=== PATIENT | female | born 1975 | race Hispanic/Latino ===

== ENCOUNTER 2016-09-12 19:15 | Emergency (ER) | payer MEDICAID ==
[2016-09-12 20:00] VITALS: BP 107/63; PULSE 72; RESP 20; TEMP 98.2; O2SAT 99
[2016-09-13] MEDS ORDERED: Piperacillin/Tazobact 3.375 gm 100 ML IVPB ONE (00:33)
== END 2016-09-12 19:57 | disposition left against medical advice (07) ==
LOC: C.ER 19:15
DX: Z02.89 Encounter for other administrative examinations (principal); H57.9 Unspecified disorder of eye and adnexa

== ENCOUNTER 2016-09-12 21:45 | Emergency (ER) | payer MEDICAID ==
[2016-09-12 22:04] VITALS: O2SAT 100
[2016-09-12] MEDS ORDERED: Piperacill/Tazo 3.375gm in Dex 3.375 GM/50 ML BAG IVPB STA (23:14)
[2016-09-12] MEDS ORDERED: Vancomycin 1 gm/NS 200 ml 1 GM/200 ML BAG IVPB STA (23:14)
--- NOTE | 2016-09-13 | C.PDOC ---
History Of Present Illness 40 y/o female presents to ED with complaint of left sided facial redness, swelling, and pain for 4-5 days. Patient states symptoms have been progressively worsening. She notes she was prescribed antibiotics at [facility] [place] 2 days ago, but did not fill the prescription. Notes tetanus vaccination is up to date. Otherwise, denies fever, chills, visual changes, lightheadedness, dizziness, or other associated symptoms. Time Seen by Provider: 09/12/16 23:09 Chief Complaint (Nursing): Eye Problem History Per: Patient History/Exam Limitations: no limitations Onset/Duration Of Symptoms: Days Current Symptoms Are (Timing): Worse Injury To Eye?: No Quality: "Pain" Associated Symptoms: Pain, Swelling. denies: Decreased Vision Recent travel outside of the [place]: No Past Medical History Reviewed: Historical Data, Nursing Documentation, Vital Signs Vital Signs: Last Vital Signs Temp 98.2 F 09/13/16 00:00 Pulse 76 09/13/16 00:00 Resp 18 09/13/16 02:00 BP 104/66 09/13/16 00:00 Pulse Ox 100 09/13/16 01:13 - Medical History PMH: Anxiety, Asthma, Back Problems, Seizures Family History: States: Unknown Family Hx - Social History Hx Tobacco Use: Yes Hx Alcohol Use: No Hx Substance Use: No (clean since 02/21) - Immunization History Hx Tetanus Toxoid Vaccination: Yes Review Of Systems Except As Marked, All Systems Reviewed And Found Negative. Constitutional: Negative for: Fever, Chills ENT: Positive for: Other (left sided facial pain, redness, swelling). Negative for: Throat Pain Respiratory: Negative for: Cough, Shortness of Breath, Wheezing Gastrointestinal: Negative for: Nausea, Vomiting Skin: Negative for: Rash Neurological: Negative for: Weakness, Numbness, Headache, Dizziness Physical Exam - Physical Exam Appears: Non-toxic, No Acute Distress Skin: Warm, Dry Head: Atraumatic, Normacephalic, Swelling (left orbit), Other (anterior to left tragus: area of superficial ulceration with diffuse redness, swelling, and induration surrounding ) Eye(s): bilateral: PERRL, EOMI Ear(s): Left: Other (see head exam), Right: Normal Nose: Normal Oral Mucosa: Moist Throat: Normal Neck: Supple Chest: Symmetrical Cardiovascular: Rhythm Regular Respiratory: Normal Breath Sounds, No Rales, No Rhonchi, No Wheezing Gastrointestinal/Abdominal: Soft, No Tenderness Back: Normal Inspection Extremity: Normal ROM, Capillary Refill (< 2 sec. ) Neurological/Psych: Oriented x3, Normal Speech, Normal Cognition ED Course And Treatment - Laboratory Results Result Diagrams: 09/13/16 00:24 09/13/16 00:24 O2 Sat by Pulse Oximetry: 100 (RA) Pulse Ox Interpretation: Normal Progress Note: IV abx given. Labs, CT orbits ordered and reviewed. Medical Decision Making Medical Decision Making: In view of the hx as well as location pt will need admission for abx tx discussed with dr Kurtz who agrees with plan Disposition - Disposition Disposition: AGAINST MEDICAL ADVICE Disposition Time: 01:13 Condition: FAIR - Clinical Impression Clinical Impression: Facial cellulitis - Scribe Statement The provider has reviewed the documentation as recorded by the Scribe Oziel Rosario Provider Scribe Attestation: All medical record entries made by the Scribe were at my direction and personally dictated by me. I have reviewed the chart and agree that the record accurately reflects my personal performance of the history, physical exam, medical decision making, and the department course for this patient. I have also personally directed, reviewed, and agree with the discharge instructions and disposition.
[2016-09-13 00:35] LABS: BASO % 0.2 % (0.0-2.0); EOS # 0.3 K/uL (0.0-0.7); EOS % 2.6 % (0.0-4.0); HEMATOCRIT 40.7 % (34.0-47.0); LYMPH # 2.9 K/uL (1.0-4.3); LYMPH % 29.9 % (20.0-40.0); MEAN CELL VOLUME 87.5 fL (81.0-99.0); MEAN CORPUSCULAR HEMOGLOBIN 28.8 pg (27.0-31.0); MEAN CORPUSCULAR HGB CONC 32.9 g/dL (33.0-37.0); MEAN PLATELET VOLUME 8.2 fL (7.2-11.7); MONO # 0.8 K/uL (0.0-0.8); MONO % 8.5 % (0.0-10.0); RED CELL DISTRIBUTION WIDTH 15.3 % (11.5-14.5); WHITE BLOOD COUNT 9.8 K/uL (4.8-10.8)
[2016-09-13 00:47] LABS: CHLORIDE 96 mmol/L (98-107); POTASSIUM 3.4 mmol/L (3.6-5.2); SODIUM 131 mmol/L (132-148)
[2016-09-13 00:49] LABS: ALB/GLOB RATIO 1.1 (1.0-2.1); ALKALINE PHOSPHATASE 115 U/L (38-126); AST/SGOT 72 U/L (14-36); BILIRUBIN,TOTAL 0.3 mg/dL (0.2-1.3); CARBON DIOXIDE 27 mmol/L (22-30); GFR AFRICAN-AMERICAN > 60
[2016-09-13 00:50] LABS: ALT/SGPT 144 U/L (9-52); BLOOD UREA NITROGEN 8 mg/dL (7-17); CALCIUM 8.5 mg/dl (8.6-10.4); GLUCOSE,RANDOM 97 mg/dL (65-105)
--- NOTE | 2016-09-13 01:40 | CP.PCM.HP ---
<Yomi Crowley - Last Filed: 09/13/16 02:09> History of Present Illness - History of Present Illness History of Present Illness: CC: "Infection of skin on face" 40 F with no significant PMH presents to [facility] ED with complaint of facial redness, swelling, and pain for 4-5 days. Patient states symptoms began suddenly and have been progressively worsening. She states that she never had these symptoms before. Patient reported that she went to [facility] [place] 2 days peterson where she was prescribed 3 antibiotics, but did not fill the prescriptions. She rated the pain 10/10 in severity. She describes the pain as constant and throbbing mainly located on left side of face. Talking and chewing make pain worse while nothing makes it better. She reports her tetanus vaccination status is up to date. Admits to difficulty seeing out of Left eye due to swelling. Otherwise, denies fever/chills, lightheadedness, dizziness, cp, sob, abd pain, n /v/d or other associated symptoms. PMD: denies PMH: denies Meds: denies Allergy: NKDA PSH: denies Hosp: denies FH: denies Social: smoker, denies ETOH, illicit drugs use Present on Admission - Present on Admission Any Indicators Present on Admission: No History of DVT/PE: No History of Uncontrolled Diabetes: No Urinary Catheter: No Decubitus Ulcer Present: No Review of Systems - Review of Systems All systems: reviewed and no additional remarkable complaints except (as per HPI ) Past Patient History - Infectious Disease Hx of Infectious Diseases: None - Past Social History Smoking Status: Heavy Smoker > 10 Cigarettes Daily - PULMONARY Hx Asthma: Yes - NEUROLOGICAL Hx Seizures: Yes - MUSCULOSKELETAL/RHEUMATOLOGICAL Hx Back Pain: Yes - PSYCHIATRIC Hx Anxiety: Yes Hx Substance Use: No (clean since 02/21) - SURGICAL HISTORY Hx Surgeries: Yes Other/Comment: ovarian cyst removal 2004 - ANESTHESIA Hx Anesthesia: Yes Hx Anesthesia Reactions: No Meds Allergies/Adverse Reactions: Allergies Allergy/AdvReac Type Severity Reaction Status Date / Time No Known Allergies Allergy Verified 09/12/16 20:01 Physical Exam - Constitutional Appears: No Acute Distress - Head Exam Head Exam: NORMOCEPHALIC Additional comments: left side of face has large scab redness over left orbit, left cheek, and right cheek beneath the eye patient left eye swollen shut - Eye Exam Eye Exam: EOMI Pupil Exam: PERRL - ENT Exam ENT Exam: Mucous Membranes Moist - Neck Exam Neck exam: Positive for: Normal Inspection - Respiratory Exam Respiratory Exam: Clear to Auscultation Bilateral, NORMAL BREATHING PATTERN - Cardiovascular Exam Cardiovascular Exam: REGULAR RHYTHM, +S1, +S2 - GI/Abdominal Exam GI & Abdominal Exam: Normal Bowel Sounds, Soft. absent: Tenderness - Extremities Exam Extremities exam: Positive for: normal capillary refill, pedal pulses present. Negative for: calf tenderness - Back Exam Back exam: absent: CVA tenderness (L), CVA tenderness (R) - Neurological Exam Neurological exam: Alert, CN II-XII Intact, Oriented x3 - Psychiatric Exam Psychiatric exam: Agitated - Skin Skin Exam: Dry, Intact, Warm Results - Vital Signs Recent Vital Signs: Last Vital Signs Temp 98.1 F 09/12/16 22:00 Pulse 67 09/12/16 22:00 Resp 20 09/12/16 22:00 BP 109/66 09/12/16 22:00 Pulse Ox 100 09/13/16 01:13 - Labs Result Diagrams: 09/13/16 00:24 09/13/16 00:24 Labs: Laboratory Results - last 24 hr 09/13/16 09/13/16 09/13/16 00:24 00:24 00:39 WBC 9.8 RBC 4.65 Hgb 13.4 Hct 40.7 MCV 87.5 MCH 28.8 MCHC 32.9 L RDW 15.3 H Plt Count 249 MPV 8.2 Neut % (Auto) 58.8 Lymph % (Auto) 29.9 [place] % (Auto) 8.5 Eos % (Auto) 2.6 Baso % (Auto) 0.2 Neut # 5.8 Lymph # 2.9 [place] # 0.8 Eos # 0.3 Baso # 0.0 Sodium 131 L Potassium 3.4 L Chloride 96 L Carbon Dioxide 27 Anion Gap 12 BUN 8 Creatinine 0.4 L Est GFR ( Amer) > 60 Est GFR (Non-Af Amer) > 60 Random Glucose 97 Calcium 8.5 L Total Bilirubin 0.3 AST 72 H D ALT 144 H D Alkaline Phosphatase 115 Total Protein 7.0 Albumin 3.6 Globulin 3.4 Albumin/Globulin Ratio 1.1 Beta HCG, Quant < 2.39 Assessment & Plan - Assessment and Plan (Free Text) Plan: 1. Facial cellulitis Zosyn and vanco given in ED Orbits CT Patient decided to SIGN OUT AMA <Celestino Gracia P - Last Filed: 09/14/16 05:53> Results - Vital Signs Recent Vital Signs: Last Vital Signs Temp 98.2 F 09/13/16 00:00 Pulse 76 09/13/16 00:00 Resp 18 09/13/16 02:00 BP 104/66 09/13/16 00:00 Pulse Ox 100 09/13/16 01:13 - Labs Result Diagrams: 09/13/16 00:24 09/13/16 00:24
[2016-09-13 02:48] VITALS: BP 104/66; PULSE 76; TEMP 98.2
[2016-09-13 02:59] VITALS: RESP 18
--- NOTE | 2016-09-13 08:10 | RAD ---
HISTORY: facial cellulitis COMPARISON: No prior. TECHNIQUE: Chest PA and lateral FINDINGS: LUNGS: No active pulmonary disease. PLEURA: No significant pleural effusion identified. No pneumothorax apparent. CARDIOVASCULAR: Normal. OSSEOUS STRUCTURES: No significant abnormalities. VISUALIZED UPPER ABDOMEN: Normal. OTHER FINDINGS: None. IMPRESSION: No active disease.
== END 2016-09-13 02:00 | disposition left against medical advice (07) ==
LOC: C.ER 21:45 → UNDOADMIN 09-13 00:59 → C.9E 09-13 00:59 → UNDODISIN 09-13 02:00 → C.ER 09-13 02:00
DX: L03.211 Cellulitis of face (principal); F41.9 Anxiety disorder, unspecified; J45.909 Unspecified asthma, uncomplicated; F17.210 Nicotine dependence, cigarettes, uncomplicated; R45.1 Restlessness and agitation
CPT/HCPCS: 71020; 80053; 84702; 85025; 87040; 96365; 96367; 99285; J2543; J3370

== ENCOUNTER 2017-01-06 23:56 | Inpatient (IN) | payer MEDICAID, OTHER ==
--- NOTE | 2017-01-07 00:06 | C.PDOC ---
History Of Present Illness 41 y/o female presents to the ED for narcotic detox. Prior to arrival the patient used Xanax and last drink was 2 days ago. Denies physical complaints at this time. PRESCREEN FOR NARCOTIC DETOX. LAST USE SPANISH SPEAKING NANNY. +XANAX ABUSE. LAST DRINK2 DAYS AGO. CURRENTLY ASYMPT EXAM NEG Time Seen by Provider: 01/07/17 00:05 Chief Complaint (Nursing): Substance Abuse History Per: Patient History/Exam Limitations: no limitations Onset/Duration Of Symptoms: Days Current Symptoms Are (Timing): Still Present Additional History Per: Patient Past Medical History Reviewed: Historical Data, Nursing Documentation, Vital Signs Vital Signs: Last Vital Signs Temp 98 F 01/07/17 01:24 Pulse 79 01/07/17 01:24 Resp 18 01/07/17 01:24 BP 122/59 L 01/07/17 01:24 Pulse Ox 97 01/07/17 01:43 - Medical History PMH: Anxiety, Asthma, Back Problems, Seizures Surgical History: No Surg Hx Family History: States: Unknown Family Hx - Social History Hx Tobacco Use: Yes Hx Alcohol Use: No Hx Substance Use: No (clean since 02/21) - Immunization History Hx Tetanus Toxoid Vaccination: Yes Hx Influenza Vaccination: No Hx Pneumococcal Vaccination: No Review Of Systems Except As Marked, All Systems Reviewed And Found Negative. Constitutional: Negative for: Fever, Chills Gastrointestinal: Negative for: Nausea, Vomiting Physical Exam - Physical Exam Appears: Non-toxic, No Acute Distress Skin: Normal Color, Warm, Dry Head: Atraumatic, Normacephalic Oral Mucosa: Moist Neck: Supple Chest: Symmetrical Cardiovascular: Rhythm Regular Respiratory: Normal Breath Sounds Gastrointestinal/Abdominal: Normal Exam, No Tenderness, No Guarding, No Rebound Extremity: Normal ROM, Capillary Refill (<2sec.) Neurological/Psych: Oriented x3, Normal Speech, Normal Cognition Gait: Steady ED Course And Treatment - Laboratory Results Result Diagrams: 01/07/17 00:18 01/07/17 00:18 O2 Sat by Pulse Oximetry: 97 (RA) Pulse Ox Interpretation: Normal Reevaluation Time: 00:55 Reassessment Condition: Unchanged (RECOMMEND MEDICINE CONSULT NEEDED FOR FUTHER MGMT OF ABN UA. MED CLEAR FOR DETOX. CRISIS NOTIFIED) Medical Decision Making Medical Decision Making: Plan: * Macrobid * Blood work * Urinalysis * Crisis Crisis notified. Disposition Counseled Patient/Family Regarding: Studies Performed, Diagnosis - Disposition Disposition: HOSPITALIZED Disposition Time: 01:21 Condition: STABLE - POA Present On Arrival: None - Clinical Impression Clinical Impression: Polysubstance abuse - Scribe Statement The provider has reviewed the documentation as recorded by the Scribe Claudio Davis All medical record entries made by the Scribe were at my direction and personally dictated by me. I have reviewed the chart and agree that the record accurately reflects my personal performance of the history, physical exam, medical decision making, and the department course for this patient. I have also personally directed, reviewed, and agree with the discharge instructions and disposition. Decision To Admit - Pt Status Changed To: Hospital Disposition Of: Inpatient - Admit Certification Admit to Inpatient:: After my assessment, the patient will require hospitalization for at least two midnights. This is because of the severity of symptoms shown, intensity of services needed, and/or the medical risk in this patient being treated as an outpatient. - InPatient: Physician Admission Certification: I certify that this patient requires 2 or more midnights of care for the following reason:: SEE NOTE - . Bed Request Type: Detox Admitting Physician: Manjula Lobo Patient Diagnosis: Polysubstance abuse
[2017-01-07 00:21] LABS: BASO % 0.5 % (0.0-2.0); EOS # 0.2 K/uL (0.0-0.7); EOS % 2.3 % (0.0-4.0); HEMATOCRIT 39.1 % (34.0-47.0); LYMPH # 4.2 K/uL (1.0-4.3); LYMPH % 41.8 % (20.0-40.0); MEAN CELL VOLUME 88.7 fL (81.0-99.0); MEAN CORPUSCULAR HEMOGLOBIN 29.3 pg (27.0-31.0); MEAN PLATELET VOLUME 7.6 fL (7.2-11.7); MONO % 9.7 % (0.0-10.0); RED CELL DISTRIBUTION WIDTH 14.7 % (11.5-14.5); WHITE BLOOD COUNT 10.2 K/uL (4.8-10.8)
[2017-01-07 00:27] LABS: RBC URINE 3 /hpf (0-3); URINE BACTERIA RARE (<OCC); URINE BILIRUBIN NEGATIVE (NEGATIVE); URINE BLOOD 1+ (NEGATIVE); URINE COLOR Yellow (YELLOW); URINE GLUCOSE (UA) NORMAL (Normal); URINE KETONE TRACE mg/dL (NEGATIVE); URINE LEUKOCYTE ESTERASE 2+ Leu/uL (Negative); URINE PROTEIN NEGATIVE (NEGATIVE); URINE UROBILINOGEN NORMAL mg/dL (0.2-1.0); WBC URINE 21 /hpf (0-5)
[2017-01-07 00:31] LABS: CHLORIDE 104 mmol/L (98-107)
[2017-01-07 00:32] LABS: POTASSIUM 3.8 mmol/L (3.6-5.2); SODIUM 139 mmol/L (132-148)
[2017-01-07 00:34] LABS: ALB/GLOB RATIO 1.2 (1.0-2.1); ALKALINE PHOSPHATASE 118 U/L (38-126); AST/SGOT 59 U/L (14-36); BILIRUBIN,TOTAL 0.4 mg/dL (0.2-1.3); BLOOD UREA NITROGEN 11 mg/dL (7-17); CARBON DIOXIDE 29 mmol/L (22-30); GFR AFRICAN-AMERICAN > 60
[2017-01-07 00:35] LABS: ALCOHOL SERUM < 10 mg/dl (0-10); ALT/SGPT 68 U/L (9-52); CALCIUM 8.7 mg/dl (8.6-10.4); GLUCOSE,RANDOM 93 mg/dL (65-105)
--- NOTE | 2017-01-07 05:49 | PCM.BM ---
<NonaRosemary Teofilo - Last Filed: 01/07/17 05:44> Treatment Plan Problems - Problems identified on initial assessmt Opiate dependence Date Initiated: 01/07/17 Time Initiated: 05:50 Assessment reference: NA Status: Active Polysubstance Date Initiated: 01/07/17 Time Initiated: 05:51 Assessment reference: NA Status: Active Treatment assets and liabiliti Patient Assests: cooperative, ADL independent, negotiates basic needs, good interpersonal skills Patient Liabilities: financial problems, poor support system, substance abuse - Milieu Protocol Maintain good personal hygiene: daily Encourage regular showers, daily Remind patient to perform daily oral care, daily Assist patient to perform ADL's Conduct patient checks and document Observation sheet: Q15 minutes Maintain personal safety: every shift Educate patient to report safety concerns to staff, every shift Monitor environment for contraband/sharps Medication safety: Monitor for expected outcome, potential side effects: every shift, Assess barriers to learning: every shift, Assess readiness for medication education: every shift <Lisette Edmonds - Last Filed: 01/07/17 11:42> Family Contact Family involvement: Famliy/SO not involved Family contact: Patient agrees to contact - Goals for Treatment Patient goals for treatment: Complete detox and discuss options for treatment at location where patient is moving. Discharge/Continuing Care - Education Needs Education Needs: Patient Medication, Patient Diagnosis/Disease Process, Patient Coping Skills, Patient Anger Management skills, Patient Placement options, Patient Community resources - Discharge Discharge Criteria: Free of agitation, No longer exhibiting s/s of withdrawal, Reduction of target symptoms Discharge to:: Home - Treatment Team Participation Patient/Family/SO Statement: 01/07/17 11:43 "I don't want inpatient treatment hor[place] me and my are gonna move as soon as I get out". Discussed with Family/SO: No Was Patient/Family/SO present at Treatment Team Meeting: Yes <Manjula Lobo - Last Filed: 01/08/17 10:21> - Diagnosis (1) Opioid use disorder, severe, dependence Status: Acute Interventions: 01/08/17 10:09 * Assess 7x/week regarding severity of withdrawal * Educate regarding risks, benefits, side effects and alternatives of medications * Use Motivational Interviewing for abstinence * Use CBT for relapse prevention * Medication management for withdrawal symptoms * Encourage medication assisted treatment * (2) Alcohol use disorder, severe, dependence Status: Acute Interventions: 01/08/17 10:20 * Assess 7x/week regarding severity of withdrawal * Educate regarding risks, benefits, side effects and alternatives of medications * Use Motivational Interviewing for abstinence * Use CBT for relapse prevention * Medication management for withdrawal symptoms * Encourage medication assisted treatment *
[2017-01-07] MEDS ORDERED: Buprenorphine Hydrochloride 2 mg SL ONE ×3 (10:27→22:40)
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
[2017-01-08] MEDS: Buprenorphine Hydrochloride 2 mg SL SCH (10:36)
[2017-01-09] MEDS: Buprenorphine Hydrochloride 2 mg SL SCH (09:19)
[2017-01-09 09:34] VITALS: RESP 18
[2017-01-09 13:09] VITALS: O2SAT 99
[2017-01-10] MEDS: Buprenorphine Hydrochloride 2 mg SL SCH (09:13)
[2017-01-10] MEDS ORDERED: Pneumococcal 23-Valent Vaccine IM ONE (10:00)
[2017-01-10 10:10] VITALS: BP 114/77; PULSE 68; TEMP 97.7
--- NOTE | 2017-01-10 18:31 | PCM.PYCHPN ---
Psychiatric Progress Note - Psychiatric Progress Note Patient seen today, length of contact: 15 Patient Chief Complaint: i want to stay and get clean. my is already clean because she is in [facility] Problems Identified/Issues Discussed: QUYNH relapse prevention Medical Problems: nothing acute Diagnostic Results: reviewed DSM 5 Symptoms Update: sleeping better Medication Change: Yes (subutex taper) Medical Record Reviewed: Yes Mental Status Examination - Cognitive Function Orientation: Person, Place, Situation, Time Memory: Intact Attention: WNL Concentration: WNL Association: WNL Fund of Knowledge: WNL - Mood Mood: Depressed, Anxious - Affect Affect: Constricted - Speech Speech: Appropriate - Formal Thought Process Formal Thought Process: No Impairment - Suicidal Ideation Suicidal Ideation: No - Homicidal Ideation Homicidal Ideation: No Goal/Treatment Plan - Goal/Treatment Plan Progress Toward Problem(s) and Goals/Treatment Plan: opiate withdrawal-less restless legs opiate use [place] CBT supportive psychotherapy Estimated Date of D/C: 01/11/17 - Smoking Cessation Smoking Cessation Initiated: Yes
--- NOTE | 2017-01-10 18:37 | PCM.PYCHPN ---
Psychiatric Progress Note - Psychiatric Progress Note Patient seen today, length of contact: 15 Patient Chief Complaint: i i jave an appointment i cannot miss on tuesday Problems Identified/Issues Discussed: relationshiops with people who still use Medical Problems: nothing acute Diagnostic Results: reviewed DSM 5 Symptoms Update: sleeping better minimum withdrawal symptoms Medication Change: Yes (subutex taper) Medical Record Reviewed: Yes Mental Status Examination - Cognitive Function Orientation: Person, Place, Situation, Time Memory: Intact Attention: WNL Concentration: WNL Association: WNL Fund of Knowledge: WNL - Mood Mood: Depressed, Anxious - Affect Affect: Constricted - Speech Speech: Appropriate - Formal Thought Process Formal Thought Process: No Impairment - Suicidal Ideation Suicidal Ideation: No - Homicidal Ideation Homicidal Ideation: No Goal/Treatment Plan - Goal/Treatment Plan Need for Continued Stay: Discharge may exacerbated symptoms Progress Toward Problem(s) and Goals/Treatment Plan: opiate withdrawal subutex taper opiate use disorder IN CBT groups use Estimated Date of D/C: 01/11/17 - Smoking Cessation Smoking Cessation Initiated: Yes
== END 2017-01-10 11:45 | disposition home or self-care (01) | DRG 744 ==
LOC: C.ER 23:56 → C.7D 01-07 01:22
PROVIDERS: ADMIT Psychiatry & Neurology Psychiatry; ATTEND Psychiatry & Neurology Psychiatry
PROC: HZ2ZZZZ Detoxification Services for Substance Abuse Treatment (ICD-10-PCS; principal; 2017-01-07)
PROC: HZ52ZZZ Individual Psychotherapy for Substance Abuse Treatment, Cognitive-Behavioral (ICD-10-PCS; 2017-01-07)
PROC: HZ59ZZZ Individual Psychotherapy for Substance Abuse Treatment, Supportive (ICD-10-PCS; 2017-01-07)
PROC: HZ56ZZZ Individual Psychotherapy for Substance Abuse Treatment, Psychoeducation (ICD-10-PCS; 2017-01-07)
DX: F11.23 Opioid dependence with withdrawal (principal); N39.0 Urinary tract infection, site not specified; F10.230 Alcohol dependence with withdrawal, uncomplicated; F41.9 Anxiety disorder, unspecified; F17.210 Nicotine dependence, cigarettes, uncomplicated; Z59.0 Homelessness; G47.00 Insomnia, unspecified; Y90.0 Blood alcohol level of less than 20 mg/100 ml; G25.81 Restless legs syndrome